=== PATIENT | female | born 1975 | race Hispanic/Latino ===

== ENCOUNTER 2018-03-03 08:24 | Emergency (ER) | payer SELFPAY ==
[2018-03-03 08:49] VITALS: BP 110/70; PULSE 72; RESP 20; TEMP 98; O2SAT 98
--- NOTE | 2018-03-03 09:13 | ED PDOC ---
HPI: Altered Mental Status Time Seen by Provider: 03/03/18 08:53 Chief Complaint (Nursing): Altered Mental Status Chief Complaint (Provider): Hearing voices History Per: Patient Onset/Duration Of Symptoms: Days (today) Additional Complaint(s): Pt. states she is hearing voices. Has issues with Muslims and wants a doctor to evaluate her. Denies any chest pain, weakness, dyspnea, headaches, dizziness. Pt. is not suicidal or homicidal. Denies drugs or etoh. Past Medical History Reviewed: Nursing Documentation, Vital Signs Vital Signs: Last Vital Signs Temp 98 F 03/03/18 08:46 Pulse 72 03/03/18 08:46 Resp 20 03/03/18 08:46 BP 110/70 03/03/18 08:46 Pulse Ox 98 03/03/18 08:46 - Medical History PMH: No Chronic Diseases - Surgical History Surgical History: No Surg Hx - Family History Family History: States: Unknown Family Hx - Allergies Allergies/Adverse Reactions: Allergies Allergy/AdvReac Type Severity Reaction Status Date / Time No Known Allergies Allergy Verified 03/03/18 08:46 Review of Systems ROS Statement: Except As Marked, All Systems Reviewed And Found Negative Physical Exam - Reviewed Nursing Documentation Reviewed: Yes Vital Signs Reviewed: Yes - Physical Exam Appears: Positive for: Non-toxic, No Acute Distress Head Exam: Positive for: ATRAUMATIC, NORMAL INSPECTION, NORMOCEPHALIC Skin: Positive for: Normal Color, Warm, DRY Eye Exam: Positive for: EOMI, Normal appearance, PERRL ENT: Positive for: Normal ENT Inspection Neck: Positive for: Normal, Painless ROM Cardiovascular/Chest: Positive for: Regular Rate, Rhythm Respiratory: Positive for: CNT, Normal Breath Sounds Gastrointestinal/Abdominal: Positive for: Normal Exam, Soft. Negative for: Tenderness Back: Positive for: Normal Inspection. Negative for: L CVA Tenderness, R CVA Tenderness Extremity: Positive for: Normal ROM. 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 Negative for: Motor/Sensory Deficits - ECG O2 Sat by Pulse Oximetry: 98 Pulse Ox Interpretation: Normal - Progress ED Course And Treament: 918: Stable. AAOx3. Crisis spoke with Dr. Wilkins. Does not meet criteria for admit. Fu outpt. Ambulated with no issues. Disposition - Clinical Impression Clinical Impression: Racism - Patient ED Disposition Is Patient to be Admitted: No Counseled Patient/Family Regarding: Diagnosis, Need For Followup - Disposition Referrals: [facility] [Outside] - 03/04/18 Disposition: Routine/Home Disposition Time: :19 Condition: STABLE Additional Instructions: Return if not better in 3 days. Instructions: Stress
== END 2018-03-03 09:48 | disposition home or self-care (01) ==
LOC: H.ER 08:24
DX: R41.82 Altered mental status, unspecified (principal)